=== PATIENT | male | born 1965 | race American Indian/Alaskan Native ===

== ENCOUNTER → 2024-09-08 | Outpatient (CLI) | payer MEDICAID, SELFPAY ==
--- NOTE | 2024-09-08 10:50 | XR_ITS ---
Examination: Wrist, right 3 views Technique: Wrist AP, oblique, lateral 3 views Date and time of exam: September 08, 2024 1105 hours INDICATIONS: History hand fracture 2 weeks ago. FINDINGS: Comminuted fracture fifth metacarpal with mild angulation on the oblique view at the fracture site No significant bony callus Moderate osteoarthritis radiocarpal joint IMPRESSION: Comminuted fracture fifth metacarpal with mild angulation at the fracture site No significant bony callus
--- NOTE | 2024-09-08 10:50 | XR_ITS ---
Examination: Hand, right 3 views Technique: Hand AP, oblique, lateral 3 views Date and time of exam: September 08, 2024 1105 hours INDICATIONS: History hand fracture 2 weeks ago FINDINGS: Comminuted fracture fifth metacarpal, minimal angulation at the fracture site No significant bony callus IMPRESSION: Fracture fifth metacarpal with no significant bony callus
== END | disposition home or self-care (01) ==
PROVIDERS: PCP Physician Assistant; Referring Provider Nurse Practitioner Gerontology; Visit Provider Nurse Practitioner Gerontology
DX: S62.396A Other fracture of fifth metacarpal bone, right hand, initial encounter for closed fracture (principal); X58.XXXA Exposure to other specified factors, initial encounter
CPT/HCPCS: 73110; 73130

== ENCOUNTER 2024-11-13 11:30 | Outpatient (RCR) | payer MEDICAID, SELFPAY ==
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
--- NOTE | 2024-10-28 13:04 | PT.ODAYNRPT ---
PT Outpatient Daily Note OP Daily Note Outpatient Physical Therapy Treatment Date: 10/28/24 Visit Reasons: Right hand surgery Subjective: Pt's hand feels better. Pt does not have any concerns. Objective: Please see flow chart for list of ther ex performed Assessment: progressing with 5th digit AROM and able to make a 95% fist. Plan: Continue with PT Length of Time (minutes) of Treatment: 30 Minutes Procedure Charges Therapeutic Exercise 30 minutes: Yes
--- NOTE | 2024-10-30 12:37 | PT.ODAYNRPT ---
PT Outpatient Daily Note OP Daily Note Outpatient Physical Therapy Treatment Date: 10/30/24 Visit Reasons: Right hand surgery Subjective: Pt reports hand is doing better. Pt mentioned that he went to the gym yesterday and was not having pain with gripping and holding gym equipment. Objective: Please see flow sheet for ther ex list. Assessment: Performed PROM of MCP, PIP, DIP, pt tolerated with minimal pain. Plan: Continue with POC. Length of Time (minutes) of Treatment: 30 Minutes Procedure Charges Therapeutic Exercise 30 minutes: Yes
--- NOTE | 2024-11-04 11:38 | PT.ODAYNRPT ---
PT Outpatient Daily Note OP Daily Note Outpatient Physical Therapy Treatment Date: 11/04/24 Visit Reasons: Right hand surgery Subjective: Pt reports hand feels stiff today. Objective: Please see flow sheet for ther ex list. Assessment: Performed PROM to 5th digit into flexion, pt tolerated well. Plan: Continue with pOC. Length of Time (minutes) of Treatment: 30 Minutes Procedure Charges Therapeutic Exercise 30 minutes: Yes
--- NOTE | 2024-11-06 12:56 | PT.ODAYNRPT ---
PT Outpatient Daily Note OP Daily Note Outpatient Physical Therapy Treatment Date: 11/06/24 Visit Reasons: Right hand surgery Subjective: Pt reports some progress in flexibility. Objective: Please see flow sheet for ther ex list. Assessment: Performed PROM to R 5th digit, minimal discomfort and decrease guarding. Plan: Continue with pOC. Length of Time (minutes) of Treatment: 30 Minutes Procedure Charges Therapeutic Exercise 30 minutes: Yes
--- NOTE | 2024-11-11 13:26 | PT.ODAYNRPT ---
PT Outpatient Daily Note OP Daily Note Outpatient Physical Therapy Treatment Date: 11/11/24 Visit Reasons: Right hand surgery Subjective: Pt reports R hand is moving better but c/o soreness on the back of the hand. . Objective: Please see flow sheet for ther ex list. 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 Plan: Continue with pOC. Length of Time (minutes) of Treatment: 30 Minutes Procedure Charges Therapeutic Exercise 30 minutes: Yes
--- NOTE | 2024-11-13 12:58 | PT.ODAYNRPT ---
PT Outpatient Daily Note OP Daily Note Outpatient Physical Therapy Treatment Date: 11/13/24 Visit Reasons: Right hand surgery Subjective: Pt's hand feels better. 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
== END 2024-11-14 23:59 | disposition home or self-care (01) ==
LOC: CPTX 11:30
PROVIDERS: PCP Surgery Surgery of the Hand; Referring Provider Surgery Surgery of the Hand; Visit Provider Surgery Surgery of the Hand
DX: M79.641 Pain in right hand (principal); M25.641 Stiffness of right hand, not elsewhere classified; R53.1 Weakness; S62.326D Displaced fracture of shaft of fifth metacarpal bone, right hand, subsequent encounter for fracture with routine healing; V29.99XD Rider (driver) (passenger) of other motorcycle injured in unspecified traffic accident, subsequent encounter
CPT/HCPCS: 97110; 97162

== ENCOUNTER 2024-12-04 11:30 | Outpatient (RCR) | payer MEDICAID, SELFPAY ==
--- NOTE | 2024-11-18 13:09 | PT.ODAYNRPT ---
PT Outpatient Daily Note OP Daily Note Outpatient Physical Therapy Treatment Date: 11/18/24 Visit Reasons: RIGHT HAND SURGERY Subjective: Pt reports R hand is moving better but still has pain with activity. Objective: Please see flow sheet for ther ex list. Assessment: 5th digit ROM into flexion continue to improve. Progressing strengthening as tolerated. Plan: Continue with POC. Length of Time (minutes) of Treatment: 30 Minutes Procedure Charges Therapeutic Exercise 30 minutes: Yes
--- NOTE | 2024-11-20 11:58 | PT.ODAYNRPT ---
PT Outpatient Daily Note OP Daily Note Outpatient Physical Therapy Treatment Date: 11/20/24 Visit Reasons: RIGHT HAND SURGERY Subjective: Pt reports progress is slow with being able to completely bend pinky finger. Objective: Please see flow sheet for ther ex list. R HAKAN score 80lbs. Assessment: Pt encouraged to perform gripping with thera ball for HEP, pt agreed. 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 Plan: Continue with pOC. Length of Time (minutes) of Treatment: 30 Minutes Procedure Charges Therapeutic Exercise 30 minutes: Yes
--- NOTE | 2024-11-26 13:13 | PT.ODAYNRPT ---
PT Outpatient Daily Note OP Daily Note Outpatient Physical Therapy Treatment Date: 11/26/24 Visit Reasons: RIGHT HAND SURGERY Subjective: Pt reports R hand is doing ok, still not able to fully bend pinky finger. Objective: Please see flow sheet for ther ex list. Assessment: Continued focus on improving digit flexion strength. Plan: Continue with POC. Length of Time (minutes) of Treatment: 30 Minutes Procedure Charges Therapeutic Exercise 30 minutes: Yes
--- NOTE | 2024-11-28 11:54 | PTNOTE_ITS ---
PT Outpatient Daily Note OP Daily Note Outpatient Physical Therapy Treatment Date: 11/28/24 Visit Reasons: RIGHT HAND SURGERY Subjective: Pt's hand is good. Pt can now make a full fist. 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
--- NOTE | 2024-12-04 11:53 | PTNOTE_ITS ---
PT OP Progress/Discharge Note Date of Service: 12/04/24 Progress Note/DC Note Progress Note/Discharge Note: DC Note Patient Information Visit Reasons: RIGHT HAND SURGERY Medical Diagnosis: M25.641; [id number] Treatment Dx #1: Right Hand Weakness Treatment Dx #2: Right Hand Mobility Deficits Service Discharge Date: 12/04/24 Status Subjective: Pt's hand is much better and has been able to resume ADLs, gripping, lifting, chores, and work duties with minimal limitation. 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 Pt has met set goals in therapy and will no longer benefit from physical therapy; thank you for your referrals. Plan: D/C home and follow up with MD PALACIOS Procedure Charges Therapeutic Exercise 30 minutes: Yes
== END 2024-12-12 23:59 | disposition home or self-care (01) ==
LOC: CPTX 11:30
PROVIDERS: PCP Surgery Surgery of the Hand; Referring Provider Surgery Surgery of the Hand; Visit Provider Surgery Surgery of the Hand
DX: M79.641 Pain in right hand (principal); M25.641 Stiffness of right hand, not elsewhere classified; R53.1 Weakness; S62.326D Displaced fracture of shaft of fifth metacarpal bone, right hand, subsequent encounter for fracture with routine healing; V29.99XD Rider (driver) (passenger) of other motorcycle injured in unspecified traffic accident, subsequent encounter
CPT/HCPCS: 97110